=== PATIENT | female | born 1975 | race Caucasian/White ===

== ENCOUNTER 2019-01-24 18:21 | Inpatient (IN) | payer OTHER, MEDICAID ==
[2019-01-24] MEDS: SOD CHLORIDE 0.9% 1,000 ML IV (19:22)
[2019-01-24] MEDS: ASPIRIN 81 MG TAB PO (19:22)
[2019-01-24] MEDS: NITROGLYCERIN (SL) 0.4 MG TAB SL (19:23)
[2019-01-24 19:24] LABS: ADD MAN DIFF? NO
[2019-01-24 19:29] LABS: WHITE BLOOD COUNT 10.7 10^3/ul (4.8-10.8)
[2019-01-24 19:29] LABS: BASOPHIL # 0.1 10^3/ul (0.0-0.1); BASOPHILS % 0.6 % (0.0-2.0); EOSINOPHILS # 0.3 10^3/ul (0.0-0.5); EOSINOPHILS % 2.5 % (0.0-7.0); HEMATOCRIT 31.1 % (37.0-47.0); HEMOGLOBIN 10.9 g/dl (12.0-16.0); LYMPHOCYTES # 3.6 10^3/ul (0.8-2.9); LYMPHOCYTES % 33.9 % (15.0-51.0); MEAN CORPUSCULAR HEMOGLOBIN 30.5 pg (29.0-33.0); MEAN CORPUSCULAR VOLUME 87.1 fl (82.0-101.0); MEAN PLATELET VOLUME 9.3 fl (7.4-10.4); MONOCYTE # 0.7 10^3/ul (0.3-0.9); MONOCYTES % 6.4 % (0.0-11.0); NEUTROPHILS % 56.2 % (39.0-77.0); PLATELET COUNT 137 10^3/UL (140-415); RED BLOOD COUNT 3.57 10^6/ul (4.20-5.40); RED CELL DISTRIBUTION WIDTH 14.7 % (11.5-14.5)
[2019-01-24 19:42] LABS: ADD UMIC YES; UR ASCORBIC ACID NEGATIVE (NEGATIVE); UR BILIRUBIN (Dip) NEGATIVE (NEGATIVE); UR BLOOD (Dip) 1+ mg/dL (NEGATIVE); UR CLARITY SLIGHTLY CLOUDY (CLEAR); UR COLOR YELLOW (YELLOW); UR GLUCOSE (Dip) NEGATIVE (NEGATIVE); UR KETONES (Dip) NEGATIVE (NEGATIVE); UR LEUKOCYTE ESTERASE (Dip) 1+ Leu/ul (NEGATIVE); UR MUCUS MODERATE /HPF (NONE SEEN); UR NITRITE (Dip) NEGATIVE (NEGATIVE); UR RBC 1 /HPF (0-5); UR SPECIFIC GRAVITY (Dip) 1.023 (1.003-1.030); UR SQUAMOUS EPITHELIAL CELL FEW /HPF (FEW); UR TOTAL PROTEIN (Dip) NEGATIVE (NEGATIVE); UR UROBILINOGEN (Dip) 1+ mg/dL (NEGATIVE); UR WBC 19 /HPF (0-5)
[2019-01-24 19:46] LABS: ALANINE AMINOTRANSFERASE 21 IU/L (13-69); ALBUMIN/GLOBULIN RATIO 1.17; ALKALINE PHOSPHATASE 74 IU/L (42-121); ANION GAP 10 (5-13); ASPARTATE AMINO TRANSFERASE 20 IU/L (15-46); BILIRUBIN,INDIRECT 0.3 mg/dl (0-1.1); BILIRUBIN,TOTAL 0.3 mg/dl (0.2-1.3); BLOOD UREA NITROGEN 8 mg/dl (7-20); CALCIUM 9.3 mg/dl (8.4-10.2); CARBON DIOXIDE 28 mmol/L (21-31); CHLORIDE 106 mmol/L (97-110); CREATININE 0.62 mg/dl (0.44-1.00); Estimated GFR > 60 mL/min (>60); GLUCOSE 99 mg/dl (70-220); LIPASE 60 U/L (23-300); POTASSIUM 3.8 mmol/L (3.5-5.1); SODIUM 144 mmol/L (135-144); TOTAL PROTEIN 7.4 g/dl (6.1-8.1)
[2019-01-24 19:57] LABS: TROPONIN-I < 0.012 ng/ml (0.000-0.120)
[2019-01-24] MEDS: CEFTRIAXONE 1 GM/50 ML (PMX) 50 ML IVPB (20:05)
[2019-01-24] MEDS: ONDANSETRON 4 MG INJ IV (20:28)
[2019-01-24] MEDS: morphine 4 MG/ML VIAL IV (20:28)
[2019-01-25] MEDS ORDERED: ONDANSETRON 4 MG INJ IV
[2019-01-25] MEDS ORDERED: NACL 0.9% 3 ML SYG IV
[2019-01-25] MEDS ORDERED: ALBUTEROL/IPRATROPIUM (NEB) 3 ML AMP HHN
[2019-01-25] MEDS ORDERED: ACETAMINOPHEN 325 MG TAB PO
[2019-01-25] MEDS: HYDROCODONE/APAP (5/325) TAB PO ×4 (00:24→20:57)
[2019-01-25 05:54] LABS: ADD MAN DIFF? NO
[2019-01-25 06:05] LABS: WHITE BLOOD COUNT 8.4 10^3/ul (4.8-10.8)
[2019-01-25 06:05] LABS: BASOPHIL # 0.1 10^3/ul (0.0-0.1); BASOPHILS % 0.6 % (0.0-2.0); EOSINOPHILS # 0.3 10^3/ul (0.0-0.5); EOSINOPHILS % 3.3 % (0.0-7.0); HEMATOCRIT 30.9 % (37.0-47.0); HEMOGLOBIN 10.9 g/dl (12.0-16.0); LYMPHOCYTES # 3.2 10^3/ul (0.8-2.9); MEAN CORPUSCULAR HEMOGLOBIN 30.4 pg (29.0-33.0); MEAN CORPUSCULAR HGB CONC 35.3 g/dl (32.0-37.0); MEAN CORPUSCULAR VOLUME 86.1 fl (82.0-101.0); MONOCYTE # 0.5 10^3/ul (0.3-0.9); MONOCYTES % 5.9 % (0.0-11.0); NEUTROPHIL # 4.4 10^3/ul (1.6-7.5); NEUTROPHILS % 51.8 % (39.0-77.0); PLATELET COUNT 118 10^3/UL (140-415); RED BLOOD COUNT 3.59 10^6/ul (4.20-5.40); RED CELL DISTRIBUTION WIDTH 15.1 % (11.5-14.5)
[2019-01-25 06:11] LABS: HEMOGLOBIN A1C 5.4 % (0-5.9)
[2019-01-25 06:37] LABS: ALANINE AMINOTRANSFERASE 24 IU/L (13-69); ALBUMIN 3.6 g/dl (3.3-4.9); ALKALINE PHOSPHATASE 64 IU/L (42-121); ANION GAP 9 (5-13); ASPARTATE AMINO TRANSFERASE 22 IU/L (15-46); BILIRUBIN,INDIRECT 0.3 mg/dl (0-1.1); BILIRUBIN,TOTAL 0.3 mg/dl (0.2-1.3); BLOOD UREA NITROGEN 6 mg/dl (7-20); CALCIUM 8.7 mg/dl (8.4-10.2); CARBON DIOXIDE 24 mmol/L (21-31); CHLORIDE 111 mmol/L (97-110); CHOL/HDL RATIO 6.5 RATIO; CHOLESTEROL 169 mg/dl (100-200); CREATININE 0.56 mg/dl (0.44-1.00); Estimated GFR > 60 mL/min (>60); GLUCOSE 114 mg/dl (70-220); HDL CHOLESTEROL 26 mg/dl (34-88); LDL CHOLESTEROL,CALCULATED 110 mg/dl; MAGNESIUM 2.1 mg/dl (1.7-2.5); POTASSIUM 3.5 mmol/L (3.5-5.1); SODIUM 144 mmol/L (135-144); TOTAL PROTEIN 6.6 g/dl (6.1-8.1); TRIGLYCERIDES 163 mg/dl (0-149)
[2019-01-25] MEDS: ASPIRIN 81 MG TAB PO (08:25)
[2019-01-25] MEDS: ENOXAPARIN 40 MG/0.4 ML SYG SC (08:28)
[2019-01-25] MEDS: predniSONE 5 MG TAB PO (08:44)
[2019-01-25 09:55] LABS: TROPONIN-I 0.058 ng/ml (0.000-0.120)
[2019-01-25 16:08] LABS: TROPONIN-I 0.037 ng/ml (0.000-0.120)
[2019-01-25] MEDS: NITROGLYCERIN (SL) 0.4 MG TAB SL ×2 (17:10→20:11)
[2019-01-25] MEDS: ISOSORBIDE DINITRATE 20 MG TAB PO ×2 (17:25→20:57)
[2019-01-25] MEDS: LIDOCAINE/MYLANTA 40 ML BTL PO (18:38)
[2019-01-25] MEDS ORDERED: IOHEXOL 300MG/ML 150 ML BTL (19:17)
[2019-01-25] MEDS ORDERED: SOD CHLORIDE 0.9% 100 ML (19:17)
[2019-01-26] MEDS: HYDROCODONE/APAP (5/325) TAB PO ×3 (03:08→15:00)
[2019-01-26 06:10] LABS: ADD MAN DIFF? NO
[2019-01-26 06:15] LABS: BASOPHILS % 0.4 % (0.0-2.0); EOSINOPHILS # 0.3 10^3/ul (0.0-0.5); EOSINOPHILS % 2.6 % (0.0-7.0); HEMATOCRIT 33.4 % (37.0-47.0); HEMOGLOBIN 11.5 g/dl (12.0-16.0); LYMPHOCYTES # 4.1 10^3/ul (0.8-2.9); LYMPHOCYTES % 41.1 % (15.0-51.0); MEAN CORPUSCULAR HGB CONC 34.4 g/dl (32.0-37.0); MEAN CORPUSCULAR VOLUME 87.2 fl (82.0-101.0); MEAN PLATELET VOLUME 10.3 fl (7.4-10.4); MONOCYTE # 0.6 10^3/ul (0.3-0.9); MONOCYTES % 5.5 % (0.0-11.0); NEUTROPHILS % 50.2 % (39.0-77.0); PLATELET COUNT 144 10^3/UL (140-415); RED BLOOD COUNT 3.83 10^6/ul (4.20-5.40); RED CELL DISTRIBUTION WIDTH 14.9 % (11.5-14.5)
[2019-01-26 07:01] LABS: ALANINE AMINOTRANSFERASE 13 IU/L (13-69); ALBUMIN/GLOBULIN RATIO 1.29; ALKALINE PHOSPHATASE 69 IU/L (42-121); ANION GAP 12 (5-13); ASPARTATE AMINO TRANSFERASE 14 IU/L (15-46); BILIRUBIN,INDIRECT 0.3 mg/dl (0-1.1); BILIRUBIN,TOTAL 0.3 mg/dl (0.2-1.3); BLOOD UREA NITROGEN 9 mg/dl (7-20); CALCIUM 9.1 mg/dl (8.4-10.2); CARBON DIOXIDE 26 mmol/L (21-31); CHLORIDE 103 mmol/L (97-110); CREATININE 0.63 mg/dl (0.44-1.00); Estimated GFR > 60 mL/min (>60); GLUCOSE 135 mg/dl (70-220); LIPASE 234 U/L (23-300); POTASSIUM 3.9 mmol/L (3.5-5.1); SODIUM 141 mmol/L (135-144); TOTAL PROTEIN 7.1 g/dl (6.1-8.1)
[2019-01-26] MEDS: ISOSORBIDE DINITRATE 20 MG TAB PO ×2 (08:20→14:22)
[2019-01-26] MEDS: predniSONE 5 MG TAB PO (08:20)
[2019-01-26] MEDS: ASPIRIN 81 MG TAB PO (08:21)
[2019-01-26] MEDS: ENOXAPARIN 40 MG/0.4 ML SYG SC (08:22)
[2019-01-26] MEDS: PANTOPRAZOLE (EC) 40 MG TAB PO (08:30)
[2019-01-26] MEDS ORDERED: IBUPROFEN 600 MG TAB PO (14:30)
[2019-01-26] MEDS ORDERED: BUSPIRONE 5 MG TAB PO (21:00)
== END 2019-01-26 17:18 | disposition home or self-care (01) | DRG 313 ==
LOC: E/R 18:21 → TEL 19:57
DX: R07.9 Chest pain, unspecified (principal); N39.0 Urinary tract infection, site not specified; D64.9 Anemia, unspecified; D69.6 Thrombocytopenia, unspecified; M54.9 Dorsalgia, unspecified; M54.2 Cervicalgia; Z79.82 Long term (current) use of aspirin
CPT/HCPCS: 36415; 71045; 71260; 80053; 80061; 81001; 81025; 83036; 83690; 83735; 84443; 84484; 85025; 93005; 93306; 99285-25

== ENCOUNTER 2019-02-11 15:17 | Inpatient (IN) | payer OTHER ==
[2019-02-11 16:38] LABS: WHITE BLOOD COUNT 13.5 10^3/ul (4.8-10.8)
[2019-02-11 16:38] LABS: ABNORMAL IP MESSAGE 1; HEMATOCRIT 34.9 % (37.0-47.0); HEMOGLOBIN 12.1 g/dl (12.0-16.0); MEAN CORPUSCULAR HEMOGLOBIN 30.3 pg (29.0-33.0); MEAN CORPUSCULAR HGB CONC 34.7 g/dl (32.0-37.0); MEAN CORPUSCULAR VOLUME 87.3 fl (82.0-101.0); MEAN PLATELET VOLUME 8.8 fl (7.4-10.4); PLATELET COUNT 50 10^3/UL (140-415); RED CELL DISTRIBUTION WIDTH 14.6 % (11.5-14.5)
[2019-02-11] MEDS: morphine 4 MG/ML VIAL IV (16:38)
[2019-02-11] MEDS: ASPIRIN 325 MG TAB PO (16:38)
[2019-02-11] MEDS: ONDANSETRON 4 MG INJ IV ×2 (16:38→19:00)
[2019-02-11 16:53] LABS: ADD MAN DIFF? YES; POSITIVE DIFF @See below
[2019-02-11 16:55] LABS: INR 0.91; PROTIME 12.4 Sec (11.9-14.9)
[2019-02-11 16:56] LABS: PARTIAL THROMBOPLASTIN TIME 28.2 Sec (23.0-35.0)
[2019-02-11 16:57] LABS: ALANINE AMINOTRANSFERASE 49 IU/L (13-69); ALBUMIN 4.1 g/dl (3.3-4.9); ALBUMIN/GLOBULIN RATIO 0.97; ALKALINE PHOSPHATASE 110 IU/L (42-121); ANION GAP 9 (5-13); ASPARTATE AMINO TRANSFERASE 36 IU/L (15-46); BILIRUBIN,INDIRECT 0.5 mg/dl (0-1.1); BILIRUBIN,TOTAL 0.5 mg/dl (0.2-1.3); BLOOD UREA NITROGEN 10 mg/dl (7-20); CALCIUM 9.5 mg/dl (8.4-10.2); CARBON DIOXIDE 25 mmol/L (21-31); CHLORIDE 105 mmol/L (97-110); CREATINE KINASE 41 IU/L (23-200); CREATININE 0.59 mg/dl (0.44-1.00); Estimated GFR > 60 mL/min (>60); GLUCOSE 123 mg/dl (70-220); LIPASE 39 U/L (23-300); POTASSIUM 3.9 mmol/L (3.5-5.1); SODIUM 139 mmol/L (135-144); TOTAL PROTEIN 8.3 g/dl (6.1-8.1)
[2019-02-11 17:09] LABS: B-TYPE NATRIURETIC PEPTIDE 271 PG/ML (0-125); CK-MB 0.39 ng/ml (0.0-2.4); TROPONIN-I 0.034 ng/ml (0.000-0.120)
[2019-02-11 18:36] LABS: ANISOCYTOSIS 1+ (0-0); BAND NEUTROPHILS #M 0.1 10^3/ul (0.0-0.6); BAND NEUTROPHILS % (M) 1 % (0-4); EOSINOPHILS % (M) 2 % (0-7); LYMPHOCYTES #M 2.2 10^3/ul (0.8-2.9); LYMPHOCYTES % (M) 17 % (15-51); MICROCYTOSIS 1+ (0-0); MONOCYTE #M 0.5 10^3/ul (0.3-0.9); MONOCYTES % (M) 4 % (0-11); PLATELET ESTIMATE DECREASED; POLYCHROMASIA 1+ (0-0); SEG NEUT #M 10.3 10^3/ul (1.6-7.5); SEGMENTED NEUTROPHILS (M) % 76 % (39-77); SMUDGE%M 1 % (0-0)
[2019-02-11] MEDS: PANTOPRAZOLE 40 MG INJ IV (19:00)
[2019-02-11] MEDS: HYDROmorphONE 1 MG/ML SYG IV (19:00)
[2019-02-11] MEDS: SOD CHLORIDE 0.9% 1,000 ML IV (19:24)
[2019-02-11] MEDS ORDERED: NACL 0.9% 3 ML SYG IV (19:30)
[2019-02-11] MEDS ORDERED: ONDANSETRON 4 MG INJ IV ×2 (19:30→20:00)
[2019-02-11 19:32] LABS: ADD UMIC NO; UR ASCORBIC ACID NEGATIVE (NEGATIVE); UR BILIRUBIN (Dip) NEGATIVE (NEGATIVE); UR BLOOD (Dip) NEGATIVE (NEGATIVE); UR CLARITY CLEAR (CLEAR); UR COLOR YELLOW (YELLOW); UR GLUCOSE (Dip) NEGATIVE (NEGATIVE); UR KETONES (Dip) NEGATIVE (NEGATIVE); UR LEUKOCYTE ESTERASE (Dip) NEGATIVE Leu/ul (NEGATIVE); UR NITRITE (Dip) NEGATIVE (NEGATIVE); UR SPECIFIC GRAVITY (Dip) 1.009 (1.003-1.030); UR TOTAL PROTEIN (Dip) NEGATIVE (NEGATIVE); UR UROBILINOGEN (Dip) NEGATIVE (NEGATIVE)
[2019-02-11] MEDS ORDERED: ACETAMINOPHEN 325 MG TAB PO (20:00)
[2019-02-11] MEDS: morphine 2 MG INJ IV (22:36)
[2019-02-11 23:11] LABS: TROPONIN-I 0.042 ng/ml (0.000-0.120)
[2019-02-12 00:39] LABS: HEMATOCRIT 35.9 % (37.0-47.0); HEMOGLOBIN 12.3 g/dl (12.0-16.0)
[2019-02-12] MEDS: morphine 2 MG INJ IV ×5 (02:27→19:58)
[2019-02-12 05:56] LABS: ADD MAN DIFF? NO
[2019-02-12 06:04] LABS: WHITE BLOOD COUNT 20.5 10^3/ul (4.8-10.8)
[2019-02-12 06:04] LABS: ABNORMAL IP MESSAGE 1; BASOPHIL # 0.1 10^3/ul (0.0-0.1); BASOPHILS % 0.3 % (0.0-2.0); EOSINOPHILS # 0.1 10^3/ul (0.0-0.5); EOSINOPHILS % 0.4 % (0.0-7.0); HEMATOCRIT 35.9 % (37.0-47.0); HEMOGLOBIN 12.4 g/dl (12.0-16.0); LYMPHOCYTES # 1.7 10^3/ul (0.8-2.9); LYMPHOCYTES % 8.5 % (15.0-51.0); MEAN CORPUSCULAR HEMOGLOBIN 30.6 pg (29.0-33.0); MEAN CORPUSCULAR HGB CONC 34.5 g/dl (32.0-37.0); MEAN CORPUSCULAR VOLUME 88.6 fl (82.0-101.0); MEAN PLATELET VOLUME 9.5 fl (7.4-10.4); MONOCYTE # 0.9 10^3/ul (0.3-0.9); MONOCYTES % 4.4 % (0.0-11.0); NEUTROPHIL # 17.6 10^3/ul (1.6-7.5); NEUTROPHILS % 85.7 % (39.0-77.0); RED BLOOD COUNT 4.05 10^6/ul (4.20-5.40); RED CELL DISTRIBUTION WIDTH 14.2 % (11.5-14.5)
[2019-02-12] MEDS: PANTOPRAZOLE 40 MG INJ IV ×2 (06:13→20:49)
[2019-02-12 06:16] LABS: HEMOGLOBIN A1C 5.6 % (0-5.9)
[2019-02-12 06:37] LABS: ALANINE AMINOTRANSFERASE 36 IU/L (13-69); ALBUMIN 3.8 g/dl (3.3-4.9); ALKALINE PHOSPHATASE 104 IU/L (42-121); ANION GAP 11 (5-13); ASPARTATE AMINO TRANSFERASE 30 IU/L (15-46); BILIRUBIN,INDIRECT 0.4 mg/dl (0-1.1); BILIRUBIN,TOTAL 0.4 mg/dl (0.2-1.3); BLOOD UREA NITROGEN 10 mg/dl (7-20); CARBON DIOXIDE 24 mmol/L (21-31); CHLORIDE 106 mmol/L (97-110); CHOL/HDL RATIO 7.9 RATIO; CHOLESTEROL 183 mg/dl (100-200); CREATININE 0.59 mg/dl (0.44-1.00); Estimated GFR > 60 mL/min (>60); GLUCOSE 192 mg/dl (70-220); HDL CHOLESTEROL 23 mg/dl (34-88); LDL CHOLESTEROL,CALCULATED 87 mg/dl; MAGNESIUM 1.9 mg/dl (1.7-2.5); POTASSIUM 3.9 mmol/L (3.5-5.1); SODIUM 141 mmol/L (135-144); TOTAL PROTEIN 7.6 g/dl (6.1-8.1); TRIGLYCERIDES 364 mg/dl (0-149)
[2019-02-12 06:45] LABS: TROPONIN-I 0.051 ng/ml (0.000-0.120)
[2019-02-12 06:47] LABS: PLATELET COUNT 34 10^3/UL (140-415); POSITIVE DIFF @See below
[2019-02-12] MEDS: SOD CHLORIDE 0.9% 1,000 ML IV ×2 (07:26→20:54)
[2019-02-12 12:00] LABS: TROPONIN-I 0.031 ng/ml (0.000-0.120)
[2019-02-12] MEDS: SUCRALFATE (100 MG/ML) 10ML CUP PO ×2 (18:01→20:49)
[2019-02-13] MEDS: morphine 2 MG INJ IV ×6 (00:06→22:32)
[2019-02-13 05:48] LABS: ABNORMAL IP MESSAGE 1; HEMATOCRIT 36.3 % (37.0-47.0); HEMOGLOBIN 12.6 g/dl (12.0-16.0); MEAN CORPUSCULAR HGB CONC 34.7 g/dl (32.0-37.0); MEAN CORPUSCULAR VOLUME 86.4 fl (82.0-101.0); MEAN PLATELET VOLUME 12.7 fl (7.4-10.4); RED CELL DISTRIBUTION WIDTH 14.5 % (11.5-14.5)
[2019-02-13 06:07] LABS: ALANINE AMINOTRANSFERASE 36 IU/L (13-69); ALBUMIN 3.4 g/dl (3.3-4.9); ALBUMIN/GLOBULIN RATIO 0.91; ALKALINE PHOSPHATASE 100 IU/L (42-121); ANION GAP 8 (5-13); ASPARTATE AMINO TRANSFERASE 23 IU/L (15-46); BILIRUBIN,INDIRECT 0.6 mg/dl (0-1.1); BILIRUBIN,TOTAL 0.6 mg/dl (0.2-1.3); BLOOD UREA NITROGEN 9 mg/dl (7-20); CALCIUM 8.4 mg/dl (8.4-10.2); CARBON DIOXIDE 27 mmol/L (21-31); CHLORIDE 105 mmol/L (97-110); CREATININE 0.53 mg/dl (0.44-1.00); Estimated GFR > 60 mL/min (>60); GLUCOSE 150 mg/dl (70-220); POTASSIUM 3.5 mmol/L (3.5-5.1); SODIUM 140 mmol/L (135-144); TOTAL PROTEIN 7.1 g/dl (6.1-8.1)
[2019-02-13 06:20] LABS: POSITIVE DIFF @See below
[2019-02-13 06:22] LABS: ADD MAN DIFF? YES; PATH REVIEW? YES; PLATELET COUNT 16 10^3/UL (140-415)
[2019-02-13 08:11] LABS: ANISOCYTOSIS 1+ (0-0); BASOPHIL #M 0.1 10^3/ul (0.0-0.0); BASOPHILS % (M) 1 % (0-2); EOSINOPHILS % (M) 1 % (0-7); LYMPHOCYTES #M 3.7 10^3/ul (0.8-2.9); LYMPHOCYTES % (M) 27 % (15-51); MICROCYTOSIS 1+ (0-0); PLATELET ESTIMATE SIG DECREASED; POLYCHROMASIA 1+ (0-0); SEGMENTED NEUTROPHILS (M) % 71 % (39-77); SMUDGE%M 2 % (0-0)
[2019-02-13] MEDS: SUCRALFATE (100 MG/ML) 10ML CUP PO ×4 (09:03→20:04)
[2019-02-13] MEDS: PANTOPRAZOLE 40 MG INJ IV (09:03)
[2019-02-13] MEDS: SOD CHLORIDE 0.9% 1,000 ML IV (11:04)
[2019-02-13] MEDS: BISACODYL (EC) 5 MG TAB PO (13:52)
[2019-02-13] MEDS: PANTOPRAZOLE (EC) 40 MG TAB PO (17:25)
[2019-02-13 18:24] LABS: HEMOGLOBIN 12.3 g/dl (12.0-16.0)
[2019-02-13] MEDS ORDERED: POLYETHYLENE GLYCOL 17 GM PACKET (19:51)
[2019-02-13] MEDS: POLYETHYLENE GLYCOL 17 GM PACKET PO (20:04)
[2019-02-14 05:24] LABS: ADD MAN DIFF? NO
[2019-02-14 05:28] LABS: ABNORMAL IP MESSAGE 1; BASOPHIL # 0.1 10^3/ul (0.0-0.1); BASOPHILS % 0.5 % (0.0-2.0); EOSINOPHILS # 0.3 10^3/ul (0.0-0.5); EOSINOPHILS % 2.4 % (0.0-7.0); HEMATOCRIT 33.4 % (37.0-47.0); HEMOGLOBIN 11.7 g/dl (12.0-16.0); LYMPHOCYTES # 3.4 10^3/ul (0.8-2.9); MEAN CORPUSCULAR HEMOGLOBIN 29.8 pg (29.0-33.0); MEAN CORPUSCULAR VOLUME 85.2 fl (82.0-101.0); MONOCYTE # 0.7 10^3/ul (0.3-0.9); MONOCYTES % 5.9 % (0.0-11.0); NEUTROPHIL # 6.6 10^3/ul (1.6-7.5); NEUTROPHILS % 59.7 % (39.0-77.0); RED BLOOD COUNT 3.92 10^6/ul (4.20-5.40); RED CELL DISTRIBUTION WIDTH 14.7 % (11.5-14.5)
[2019-02-14 05:30] LABS: POSITIVE DIFF @See below
[2019-02-14 05:37] LABS: PLATELET COUNT 12 10^3/UL (140-415)
[2019-02-14 05:57] LABS: ALANINE AMINOTRANSFERASE 34 IU/L (13-69); ALBUMIN 3.4 g/dl (3.3-4.9); ALBUMIN/GLOBULIN RATIO 1.06; ALKALINE PHOSPHATASE 119 IU/L (42-121); ANION GAP 6 (5-13); ASPARTATE AMINO TRANSFERASE 24 IU/L (15-46); BILIRUBIN,INDIRECT 0.4 mg/dl (0-1.1); BILIRUBIN,TOTAL 0.4 mg/dl (0.2-1.3); BLOOD UREA NITROGEN 8 mg/dl (7-20); CALCIUM 8.6 mg/dl (8.4-10.2); CARBON DIOXIDE 28 mmol/L (21-31); CHLORIDE 104 mmol/L (97-110); CREATININE 0.53 mg/dl (0.44-1.00); Estimated GFR > 60 mL/min (>60); GLUCOSE 114 mg/dl (70-220); SODIUM 138 mmol/L (135-144); TOTAL PROTEIN 6.6 g/dl (6.1-8.1)
[2019-02-14] MEDS: PANTOPRAZOLE (EC) 40 MG TAB PO ×2 (06:00→19:14)
[2019-02-14 06:13] LABS: POTASSIUM 2.9 mmol/L (3.5-5.1)
[2019-02-14] MEDS: POTASSIUM CHLORIDE (SR) 20 MEQ TAB PO ×2 (06:54→08:28)
[2019-02-14] MEDS: morphine 2 MG INJ IV ×3 (06:54→20:45)
[2019-02-14 07:06] LABS: PHOSPHORUS 3.5 mg/dl (2.5-4.9)
[2019-02-14 07:06] LABS: MAGNESIUM 2.1 mg/dl (1.7-2.5)
[2019-02-14] MEDS: POLYETHYLENE GLYCOL 17 GM PACKET PO ×2 (08:27→20:39)
[2019-02-14] MEDS: SUCRALFATE (100 MG/ML) 10ML CUP PO ×4 (08:28→20:43)
[2019-02-14 12:46] LABS: TYPE AND SCREEN 1 1
[2019-02-14] MEDS: PROPOFOL 20 ML (14:45)
[2019-02-14] MEDS: FENTAnyl 50 MCG/ML VIAL (14:46)
[2019-02-14] MEDS ORDERED: ONDANSETRON 4 MG INJ IV (15:00)
[2019-02-14] MEDS: traMADol 50 MG TAB PO (16:37)
[2019-02-15] MEDS: morphine 2 MG INJ IV ×6 (02:06→22:38)
[2019-02-15 05:53] LABS: ADD MAN DIFF? NO
[2019-02-15 06:00] LABS: WHITE BLOOD COUNT 9.3 10^3/ul (4.8-10.8)
[2019-02-15 06:00] LABS: ABNORMAL IP MESSAGE 1; BASOPHIL # 0.1 10^3/ul (0.0-0.1); BASOPHILS % 0.8 % (0.0-2.0); EOSINOPHILS # 0.3 10^3/ul (0.0-0.5); EOSINOPHILS % 3.1 % (0.0-7.0); HEMATOCRIT 33.7 % (37.0-47.0); HEMOGLOBIN 11.7 g/dl (12.0-16.0); LYMPHOCYTES # 4.2 10^3/ul (0.8-2.9); LYMPHOCYTES % 45.1 % (15.0-51.0); MEAN CORPUSCULAR HEMOGLOBIN 30.2 pg (29.0-33.0); MEAN CORPUSCULAR HGB CONC 34.7 g/dl (32.0-37.0); MEAN CORPUSCULAR VOLUME 86.9 fl (82.0-101.0); MEAN PLATELET VOLUME 11.6 fl (7.4-10.4); MONOCYTE # 0.4 10^3/ul (0.3-0.9); MONOCYTES % 3.9 % (0.0-11.0); NEUTROPHIL # 4.4 10^3/ul (1.6-7.5); NEUTROPHILS % 46.8 % (39.0-77.0); PLATELET COUNT 48 10^3/UL (140-415); RED BLOOD COUNT 3.88 10^6/ul (4.20-5.40); RED CELL DISTRIBUTION WIDTH 15.1 % (11.5-14.5)
[2019-02-15 06:03] LABS: POSITIVE DIFF @See below
[2019-02-15 06:21] LABS: PHOSPHORUS 4.6 mg/dl (2.5-4.9)
[2019-02-15] MEDS: PANTOPRAZOLE (EC) 40 MG TAB PO ×2 (06:25→18:19)
[2019-02-15 06:30] LABS: ALANINE AMINOTRANSFERASE 33 IU/L (13-69); ALBUMIN 3.7 g/dl (3.3-4.9); ALBUMIN/GLOBULIN RATIO 1.12; ALKALINE PHOSPHATASE 118 IU/L (42-121); ANION GAP 8 (5-13); ASPARTATE AMINO TRANSFERASE 24 IU/L (15-46); BILIRUBIN,INDIRECT 0.3 mg/dl (0-1.1); BILIRUBIN,TOTAL 0.3 mg/dl (0.2-1.3); BLOOD UREA NITROGEN 9 mg/dl (7-20); CALCIUM 8.9 mg/dl (8.4-10.2); CARBON DIOXIDE 28 mmol/L (21-31); CHLORIDE 104 mmol/L (97-110); CREATININE 0.58 mg/dl (0.44-1.00); Estimated GFR > 60 mL/min (>60); GLUCOSE 111 mg/dl (70-220); POTASSIUM 3.5 mmol/L (3.5-5.1); SODIUM 140 mmol/L (135-144)
[2019-02-15] MEDS: SUCRALFATE (100 MG/ML) 10ML CUP PO ×4 (08:19→21:34)
[2019-02-15] MEDS: POLYETHYLENE GLYCOL 17 GM PACKET PO ×2 (08:19→21:34)
[2019-02-16] MEDS: morphine 2 MG INJ IV ×2 (03:16→07:36)
[2019-02-16] MEDS: PANTOPRAZOLE (EC) 40 MG TAB PO (06:15)
[2019-02-16 07:22] LABS: ADD MAN DIFF? NO
[2019-02-16 07:33] LABS: WHITE BLOOD COUNT 9.6 10^3/ul (4.8-10.8)
[2019-02-16 07:33] LABS: ABNORMAL IP MESSAGE 1; BASOPHIL # 0.1 10^3/ul (0.0-0.1); BASOPHILS % 0.7 % (0.0-2.0); EOSINOPHILS # 0.4 10^3/ul (0.0-0.5); EOSINOPHILS % 3.6 % (0.0-7.0); HEMATOCRIT 35.4 % (37.0-47.0); LYMPHOCYTES # 3.7 10^3/ul (0.8-2.9); LYMPHOCYTES % 38.5 % (15.0-51.0); MEAN CORPUSCULAR HEMOGLOBIN 29.9 pg (29.0-33.0); MEAN CORPUSCULAR HGB CONC 33.9 g/dl (32.0-37.0); MEAN CORPUSCULAR VOLUME 88.3 fl (82.0-101.0); MEAN PLATELET VOLUME 12.1 fl (7.4-10.4); MONOCYTE # 0.5 10^3/ul (0.3-0.9); MONOCYTES % 5.2 % (0.0-11.0); NEUTROPHILS % 51.8 % (39.0-77.0); PLATELET COUNT 80 10^3/UL (140-415); RED BLOOD COUNT 4.01 10^6/ul (4.20-5.40); RED CELL DISTRIBUTION WIDTH 14.5 % (11.5-14.5)
[2019-02-16 07:37] LABS: POSITIVE DIFF @See below
[2019-02-16 07:52] LABS: ALANINE AMINOTRANSFERASE 46 IU/L (13-69); ALBUMIN 3.9 g/dl (3.3-4.9); ALKALINE PHOSPHATASE 129 IU/L (42-121); ANION GAP 9 (5-13); ASPARTATE AMINO TRANSFERASE 36 IU/L (15-46); BILIRUBIN,INDIRECT 0.3 mg/dl (0-1.1); BILIRUBIN,TOTAL 0.3 mg/dl (0.2-1.3); BLOOD UREA NITROGEN 11 mg/dl (7-20); CALCIUM 9.5 mg/dl (8.4-10.2); CARBON DIOXIDE 28 mmol/L (21-31); CHLORIDE 102 mmol/L (97-110); CREATININE 0.64 mg/dl (0.44-1.00); Estimated GFR > 60 mL/min (>60); GLUCOSE 119 mg/dl (70-220); POTASSIUM 3.8 mmol/L (3.5-5.1); SODIUM 139 mmol/L (135-144); TOTAL PROTEIN 7.8 g/dl (6.1-8.1)
[2019-02-16 08:40] LABS: PHOSPHORUS 4.2 mg/dl (2.5-4.9)
[2019-02-16] MEDS: POLYETHYLENE GLYCOL 17 GM PACKET PO (09:44)
[2019-02-16] MEDS: SUCRALFATE (100 MG/ML) 10ML CUP PO ×2 (09:44→13:17)
== END 2019-02-16 16:05 | disposition home or self-care (01) | DRG 379 ==
LOC: E/R 15:17 → 6WM 19:38 → PP2 02-13 17:02
PROC: 0DJ08ZZ Inspection of Upper Intestinal Tract, Via Natural or Artificial Opening Endoscopic (ICD-10-PCS; principal; 2019-02-14 14:30)
PROC: 6A551Z2 Pheresis of Platelets, Multiple (ICD-10-PCS; 2019-02-14 14:30)
DX: K29.71 Gastritis, unspecified, with bleeding (principal); D69.6 Thrombocytopenia, unspecified; I25.10 Atherosclerotic heart disease of native coronary artery without angina pectoris; D72.829 Elevated white blood cell count, unspecified; I10 Essential (primary) hypertension; I25.2 Old myocardial infarction; R07.89 Other chest pain; E78.1 Pure hyperglyceridemia; K31.7 Polyp of stomach and duodenum
CPT/HCPCS: 36415; 36430; 71045; 80053; 80061; 81003; 82550; 82553; 83036; 83690; 83735; 83880; 84100; 84443; 84484; 84703; 85014; 85018; 85025; 85610; 85730; 86850; 86900; 86901; 87338; 93005; 93306; 96374; 96375; 96376; 99285-25; G0378